=== PATIENT | female | born 1990 | race Two or more races ===

== ENCOUNTER 2021-12-02 11:59 | Emergency (ER) | payer MEDICAID ==
[~2021-12-02] VITALS: Ht 154.9 cm; Wt 77.1 kg
[2021-12-02 12:07] VITALS: BP 120/83
[2021-12-02] MEDS ORDERED: BENZOCAINE (DENTAL) 20 % SPRAY 60ML MT ONE (14:30)
[2021-12-02] MEDS ORDERED: CLINDAMYCIN 900MG IV 50 ML IV ONE (14:30)
[2021-12-02] MEDS ORDERED: IBUP800T27 PO (16:01)
[2021-12-02] MEDS ORDERED: KETOROLAC TROMETH 30 MG/ML 1ML VIAL IV ONE (16:15)
== END 2021-12-02 17:05 | disposition home or self-care (01) ==
LOC: ER 11:59
DX: K04.7 Periapical abscess without sinus (principal)
CPT/HCPCS: 81025; 96365; 96375; 99284; J1885; J3490

== ENCOUNTER 2022-03-08 22:15 | Emergency (ER) | payer MEDICAID ==
[~2022-03-08] VITALS: Ht 154.9 cm; Wt 77.2 kg
[~2022-03-08 22:15] MED LIST: IBUP800T27 PO
[2022-03-09 00:20] VITALS: BP 124/69
[2022-03-09] MEDS ORDERED: IBUPROFEN 600 MG TAB PO ONE (02:00)
[2022-03-09] MEDS ORDERED: AMOX500T86 PO (04:55)
[2022-03-09] MEDS ORDERED: HYDR-4798 PO (04:55)
[2022-03-09] MEDS ORDERED: HYDROcodone-ACET 10/325MG TAB PO ONE (05:00)
== END 2022-03-09 05:18 | disposition home or self-care (01) ==
LOC: ER 22:15
DX: K08.89 Other specified disorders of teeth and supporting structures (principal); Z79.1 Long term (current) use of non-steroidal anti-inflammatories (NSAID)